=== PATIENT | male | born 1945 | race African-American/Black ===

== ENCOUNTER → 2018-02-12 | Outpatient (CLI) | payer MEDICARE ==
--- NOTE | 2018-02-12 13:35 | Diagnostic Imaging Report ---
PROCEDURE: Frontal and lateral views of the chest. COMPARISON: None. INDICATIONS: SHORTNESS OF BREATH FINDINGS: Lines/tubes: None. left sided cardiac pacemaker. Lungs: Patchy density in the left lung base associated with elevation of the left hemidiaphragm may represent atelectasis however, cannot exclude pneumonia. Bibasilar subsegmental atelectasis. Prominence of the pulmonary vasculature with redistribution bilaterally. Pleura: There is no pleural effusion or pneumothorax. Heart and mediastinum: The cardiac silhouette is moderately enlarged. Prominence of the pulmonary hilum bilaterally representing large pulmonary arteries. Calcified hilar lymph nodes. Bones: No acute bony abnormality. Extensive patchy sclerosis about the upper to mid thoracic spine on the lateral view. IMPRESSION: 1. Findings consistent with bilateral pulmonary venous congestion (volume overload). 2. Bibasilar subsegmental atelectasis. Cannot exclude developing pneumonia in the left lung base (in the proper clinical setting). Vince Torres M.D. Dictated by: Vince Torres M.D. on 02/12/2018 at 13:36 Electronically approved by: Vince Torres M.D. on 02/12/2018 at 13:36
== END ==
LOC: RAD 13:07
PROVIDERS: ATTEND Internal Medicine Interventional Cardiology
DX: R06.02 Shortness of breath (principal)
CPT/HCPCS: 71046